=== PATIENT | female | born 1980 | race Hispanic/Latino ===

== ENCOUNTER 2017-12-24 18:59 | Emergency (ER) | payer SELFPAY ==
[2017-12-24] MEDS ORDERED: hydrOXYzine HCl 25 MG TAB ONE (19:36)
--- NOTE | 2017-12-24 19:43 | ER ---
Nurse's Notes [facility] Name: Liat Dover Age: 37 yrs Sex: Female : 1980 Arrival Date: 12/24/2017 Time: 19:02 Bed 10 Private MD: Diagnosis: Rash and other nonspecific skin eruption Presentation: 12/24 19:16 Presenting complaint: Patient states: that she has a rash to arms, neck, abd and groin fc area. This has been going on for months. She has been taking Benadryl with no relief. States that rash is getting worse. In August was seen her and was given Steroids that improved that rash. Unable to afford to go to dr. Transition of care: patient was not received from another setting of care. Onset of symptoms was August 2017. Initial Sepsis Screen: Does the patient meet any 2 criteria? No. Patient's initial sepsis screen is negative. Does the patient have a suspected source of infection? No. Patient's initial sepsis screen is negative. Care prior to arrival: Medication(s) given: Benadryl. 19:16 Method Of Arrival: Ambulatory 19:16 Acuity: ARYAN 5 Triage Assessment: 19:19 General: Appears uncomfortable, Behavior is cooperative, appropriate for age, anxious, fc crying. Pain: Denies pain. EENT: No deficits noted. Neuro: Level of Consciousness is awake, alert, obeys commands, Oriented to person, place, time, situation. Cardiovascular: No deficits noted. Respiratory: No deficits noted. GI: No deficits noted. : No deficits noted. Derm: Skin is pink, warm \T\ dry. Rash noted that is itchy, raised, urticaria, on back, abdomen, pelvis, right arm, left arm and neck. Musculoskeletal: Circulation, motion, and sensation intact. Capillary refill < 3 seconds, Range of motion: intact in all extremities. 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 - Social history:: Smoking status: Patient/guardian denies using tobacco. Screenin:20 Abuse screen: Denies threats or abuse. Nutritional screening: No deficits noted. Tuberculosis screening: No symptoms or risk factors identified. Fall Risk None identified. Assessment: 19:40 General: Appears in no apparent distress. uncomfortable, Behavior is cooperative, aa1 appropriate for age, anxious. Pain: Denies pain. Neuro: Level of Consciousness is awake, alert, obeys commands, Oriented to person, place, time, situation. Respiratory: Airway is patent Respiratory effort is even, unlabored, Respiratory pattern is regular, symmetrical, Breath sounds are clear bilaterally. GI: No signs and/or symptoms were reported involving the gastrointestinal system. : No signs and/or symptoms were reported regarding the genitourinary system. EENT: No signs and/or symptoms were reported regarding the EENT system. Derm: Skin is intact, is healthy with good turgor, Skin is pink, warm \T\ dry. Reports itching. Musculoskeletal: Circulation, motion, and sensation intact. Capillary refill < 3 seconds. 19:54 Reassessment: Patient appears in no apparent distress at this time. Patient is alert, aa1 oriented x 3, equal unlabored respirations, skin warm/dry/pink. Discussed d/c \T\ f/u instructions with pt; denies questions or concerns at this time. Vital Signs: 19:21 BP 108 / 81; Pulse 92; Resp 18; Temp 99.0(TE); Pulse Ox 100% on R/A; Weight 105.96 kg; fc Height 5 ft. 4 in. (162.56 cm); Pain 0/10; 19:21 Body Mass Index 40.10 (105.96 kg, 162.56 cm) ED Course: 19:02 Patient arrived in ED. mr 19:18 Jina Tam FNP-C [facility]. snw 19:18 Kody Ang MD is Attending Physician. snw 19:18 Triage completed. fc 19:20 Arm band placed on right wrist. Patient placed in an exam room, on a stretcher. fc 19:20 Patient has correct armband on for positive identification. Call light in reach. fc 19:34 Roxana Wade, RN is Primary Nurse. aa1 19:54 No provider procedures requiring assistance completed. Patient did not have IV access aa1 during this emergency room visit. Administered Medications: 19:40 Drug: Atarax 50 mg Route: PO; aa1 19:46 Follow up: Response: Medication administered at discharge. aa1 Outcome: 19:43 Discharge ordered by . kendra 19:54 Discharged to home ambulatory. aa1 19:54 Condition: good 19:54 Discharge instructions given to patient, Instructed on discharge instructions, follow up and referral plans. medication usage, Demonstrated understanding of instructions, follow-up care, medications, Prescriptions given X 2. 19:56 Patient left the ED. aa1 Signatures: Roxana Wade, RN RN aa1 Jina Tam, ENGINEERING AND SCIENTIFIC PROGRAMMER-C ENGINEERING AND SCIENTIFIC PROGRAMMER-Csnw Светлана Velasquez mr Hollie Goyal, [place] RN fc
--- NOTE | 2017-12-24 19:43 | EDPHYS ---
Physician Documentation [facility] Name: Liat Dover Age: 37 yrs Sex: Female : 1980 Arrival Date: 12/24/2017 Time: 19:02 Bed 10 Private MD: ED Physician Kody Ang HPI: 12/24 22:09 This 37 yrs old Female presents to ER via Ambulatory with complaints of Rash. snw 22:09 The patient's rash thought to be caused by Dermatitis. The rash is located on the body snw diffusely. The rash can be described as confluent, papular. Onset: The symptoms/episode began/occurred "since August and has gotten no better" pt states she has unscented everything and is scared to use any new products. Tearful and distraught at triage.. Severity of symptoms: At their worst the symptoms were moderate. Treatment given at home: Benadryl. The patient has not experienced similar symptoms in the past. x one, got better briefly but then recurred. 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 - Social history:: Smoking status: Patient/guardian denies using tobacco. ROS: 22:08 Constitutional: Negative for fever, chills, and weight loss, Eyes: Negative for injury, snw pain, redness, and discharge, ENT: Negative for injury, pain, and discharge, Neck: Negative for injury, pain, and swelling, Cardiovascular: Negative for chest pain, palpitations, and edema, Respiratory: Negative for shortness of breath, cough, wheezing, and pleuritic chest pain, Abdomen/GI: Negative for abdominal pain, nausea, vomiting, diarrhea, and constipation, Back: Negative for injury and pain, : Negative for injury, bleeding, discharge, and swelling, MS/Extremity: Negative for injury and deformity, Neuro: Negative for headache, weakness, numbness, tingling, and seizure, Psych: Negative for depression, anxiety, suicide ideation, homicidal ideation, and hallucinations. 22:08 Skin: Positive for rash with tiny dots that are intensely pruritic x several months.. Exam: 22:07 Constitutional: This is a well developed, well nourished patient who is awake, alert, snw and in no acute distress. Head/Face: Normocephalic, atraumatic. Eyes: Pupils equal round and reactive to light, extra-ocular motions intact. Lids and lashes normal. Conjunctiva and sclera are non-icteric and not injected. Cornea within normal limits. Periorbital areas with no swelling, redness, or edema. ENT: Nares patent. No nasal discharge, no septal abnormalities noted. Tympanic membranes are normal and external auditory canals are clear. Oropharynx with no redness, swelling, or masses, exudates, or evidence of obstruction, uvula midline. Mucous membranes moist. Neck: Trachea midline, no thyromegaly or masses palpated, and no cervical lymphadenopathy. Supple, full range of motion without nuchal rigidity, or vertebral point tenderness. No Meningismus. Chest/axilla: Normal chest wall appearance and motion. Nontender with no deformity. No lesions are appreciated. Cardiovascular: Regular rate and rhythm with a normal S1 and S2. No gallops, murmurs, or rubs. Normal PMI, no JVD. No pulse deficits. Respiratory: Lungs have equal breath sounds bilaterally, clear to auscultation and percussion. No rales, rhonchi or wheezes noted. No increased work of breathing, no retractions or nasal flaring. Abdomen/GI: Soft, non-tender, with normal bowel sounds. No distension or tympany. No guarding or rebound. No evidence of tenderness throughout. Back: No spinal tenderness. No costovertebral tenderness. Full range of motion. MS/ Extremity: Pulses equal, no cyanosis. Neurovascular intact. Full, normal range of motion. Neuro: Awake and alert, GCS 15, oriented to person, place, time, and situation. Cranial nerves II-XII grossly intact. Motor strength 5/5 in all extremities. Sensory grossly intact. Cerebellar exam normal. Normal gait. 22:07 Skin: Appearance: normal except for affected area, scabies, and is diffusely located. 22:07 Psych: Behavior/mood is pleasant, anxious. Vital Signs: 19:21 BP 108 / 81; Pulse 92; Resp 18; Temp 99.0(TE); Pulse Ox 100% on R/A; Weight 105.96 kg; fc Height 5 ft. 4 in. (162.56 cm); Pain 0/10; 19:21 Body Mass Index 40.10 (105.96 kg, 162.56 cm) fc MDM: 19:43 Patient medically screened. snw 22:08 Data reviewed: vital signs, nurses notes. Data interpreted: Pulse oximetry: on room air snw is 100 %. Interpretation: normal. Counseling: I had a detailed discussion with the patient and/or guardian regarding: the historical points, exam findings, and any diagnostic results supporting the discharge/admit diagnosis, the presence of at least one elevated blood pressure reading (>120/80) during this emergency department visit, the need for outpatient follow up, a xm1 tank driver, to return to the emergency department if symptoms worsen or persist or if there are any questions or concerns that arise at home. Special discussion: I have referred the patient to see his PCP for further evaluation of high blood pressure. Based on the history and exam findings, there is no indication for further emergent testing or inpatient evaluation. I discussed with the patient/guardian the need to see the xm1 tank driver for further evaluation of the symptoms. I discussed with the patient/guardian the need to see the primary care provider for further evaluation of the symptoms. Administered Medications: 19:40 Drug: Atarax 50 mg Route: PO; aa1 19:46 Follow up: Response: Medication administered at discharge. aa1 Disposition: 12/25 19:17 Co-signature as Attending Physician, Kody Ang MD. Disposition: 12/24/17 19:43 Discharged to Home. Impression: Rash and other nonspecific skin eruption. - Condition is Stable. - Discharge Instructions: Allergies, Rash, Scabies. - Prescriptions for Elimite 5 % Topical Cream - apply 1 application by TOPICAL route one time Wash after 12 hours.; 60 gram. Zyrtec 10 mg Oral Tablet - take 1 tablet by ORAL route once daily As needed; 20 tablet. - Medication Reconciliation Form, Thank You Letter, Antibiotic Education, Prescription Opioid Use form. - Follow up: Private Physician; When: 1 week; Reason: Recheck today's complaints, Continuance of care, Re-evaluation by your physician. Follow up: Emergency Department; When: As needed; Reason: Worsening of condition. Signatures: Roxana Wade RN RN aa1 Jina Tam, CRM TECHNICAL LEAD-C CRM TECHNICAL LEAD-Csnw Hollie Goyal RN RN fc Kody Ang MD MD gs Corrections: (The following items were deleted from the chart) 12/24 19:56 19:43 12/24/2017 19:43 Discharged to Home. Impression: Rash and other nonspecific skin aa1 eruption. Condition is Stable. Forms are Medication Reconciliation Form, Thank You Letter, Antibiotic Education, Prescription Opioid Use. Follow up: Private Physician; When: 1 week; Reason: Recheck today's complaints, Continuance of care, Re-evaluation by your physician. Follow up: Emergency Department; When: As needed; Reason: Worsening of condition. snw
== END 2017-12-24 19:56 | disposition home or self-care (01) ==
LOC: ER 18:59
DX: R21 Rash and other nonspecific skin eruption (principal)
CPT/HCPCS: 99283

== ENCOUNTER 2018-02-25 23:07 | Emergency (ER) | payer SELFPAY ==
[2018-02-25] MEDS ORDERED: LIDOCAINE 1% MPF 5 ML VIAL ONE (23:22)
[2018-02-25] MEDS ORDERED: TRAMADOL HCL 50 MG TAB ONE (23:37)
[2018-02-25] MEDS ORDERED: SMZ./TMP. 800/160 MG TABLET ONE (23:37)
[2018-02-25] MEDS ORDERED: CIPROFLOXACIN HCL 500 MG TAB ONE (23:37)
--- NOTE | 2018-02-25 23:43 | ER ---
Nurse's Notes [facility] Name: Liat Dover Age: 37 yrs Sex: Female : 1980 Arrival Date: 02/25/2018 Time: 23:07 Bed 15 Private MD: Diagnosis: Abscess right buttock Presentation: 02/25 23:15 Presenting complaint: Patient states: I have a boil on my left glute, started on the tl2 . Pt reports pain and unable to apply pressure. Abscess is hot to touch, draining, and baseball sized induration. Pt denies feeling sick. Transition of care: patient was not received from another setting of care. Onset of symptoms was February 19, 2018. Risk Assessment: Do you want to hurt yourself or someone else? Patient reports no desire to harm self or others. Initial Sepsis Screen: Does the patient meet any 2 criteria? No. Patient's initial sepsis screen is negative. Does the patient have a suspected source of infection? No. Patient's initial sepsis screen is negative. Care prior to arrival: None. 23:15 Method Of Arrival: Ambulatory tl2 23:15 Acuity: ARYAN 3 tl2 Triage Assessment: 23:19 General: Appears in no apparent distress. uncomfortable, Behavior is cooperative, tl2 appropriate for age, crying. Pain: Complains of pain in right gluteus luz maria. Neuro: Level of Consciousness is awake, alert, obeys commands, Oriented to person, place, time, situation. Cardiovascular: Denies chest pain. Respiratory: Airway is patent Respiratory effort is even, unlabored, Respiratory pattern is regular, symmetrical. GI: No signs and/or symptoms were reported involving the gastrointestinal system. : No signs and/or symptoms were reported regarding the genitourinary system. Derm: Skin is pink, warm \T\ dry. Abscess located on right gluteus luz maria is golf ball sized, has clear drainage, is hot to touch, is raised. 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 - Social history:: Smoking status: Patient/guardian denies using tobacco. - Ebola Screening: : No symptoms or risks identified at this time. Screenin:21 Abuse screen: Denies threats or abuse. Nutritional screening: No deficits noted. tl2 Tuberculosis screening: No symptoms or risk factors identified. Fall Risk None identified. Assessment: 23:43 Reassessment: Patient appears in no apparent distress at this time. Patient and/or tl1 family updated on plan of care and expected duration. Pain level reassessed. Patient is alert, oriented x 3, equal unlabored respirations, skin warm/dry/pink. Patient states feeling better. Patient states symptoms have improved. Vital Signs: 23:19 BP 131 / 92; Pulse 83; Resp 20; Temp 99.6(O); Pulse Ox 100% on R/A; Weight 108.86 kg; tl2 Height 5 ft. 4 in. (162.56 cm); Pain 10/10; 23:45 BP 138 / 96; Pulse 81; Resp 17; Temp 99.6; Pulse Ox 100% ; Pain 4/10; tl1 23:19 Body Mass Index 41.20 (108.86 kg, 162.56 cm) tl2 ED Course: 23:07 Patient arrived in ED. ds1 23:18 Triage completed. tl2 23:19 Ottoniel Toro MD is Attending Physician. pkl 23:19 Arm band placed on right wrist. tl2 23:21 Patient has correct armband on for positive identification. Placed in gown. Bed in low tl2 position. Call light in reach. Side rails up X 1. 23:40 Yessi Castro RN is Primary Nurse. tl1 23:40 Wound Culture Sent. tl1 23:41 Aquiles Thurman MD is Referral Physician. pkl 23:41 Assist provider with I \T\ D: of an abscess on left left glut area Set up I\T\D tray. tl 1 Performed by Ottoniel Toro MD Culture sent to lab. Wound packed. 4X4s, Dressing with ABD pad, tape. Patient did not have IV access during this emergency room visit. Administered Medications: 23:40 Drug: UltRAM 50 mg Route: PO; tl1 23:43 Follow up: Response: No adverse reaction; Medication administered at discharge. tl1 23:41 Drug: Bactrim (160 mg-800 mg (DS) 1 tablet Route: PO; tl1 23:44 Follow up: Response: No adverse reaction; Medication administered at discharge. tl1 23:41 Drug: Cipro 500 mg Route: PO; tl1 23:44 Follow up: Response: No adverse reaction; Medication administered at discharge. tl1 Point of Care Testing: Blood Glucose: 23:28 Blood Glucose: 87 mg/dL; cb2 Ranges: Outcome: 23:42 Discharge ordered by . pkl 23:50 Discharged to home ambulatory. tl1 23:50 Condition: improved 23:50 Discharge instructions given to patient, Instructed on discharge instructions, follow up and referral plans. medication usage, wound care, Demonstrated understanding of instructions, follow-up care, medications, wound care, Prescriptions given X 3. 23:52 Patient left the ED. tl1 Addendum: 03/01/2018 07:56 Addendum: Culture Results: Positive wound culture. No further action required. Bacteria i w sensitive to prescribed antibiotic. Signatures: Ottoniel Toro MD MD pkRaquel Mc ds1 Gail oDe RN RN iw Yessi Castro RN RN tl1 Suad Moe RN RN tl2 Marck Grider cb2
--- NOTE | 2018-02-25 23:43 | EDPHYS ---
Physician Documentation [facility] Name: Liat Dover Age: 37 yrs Sex: Female : 1980 Arrival Date: 02/25/2018 Time: 23:07 Bed 15 Private MD: ED Physician Ottoniel Toro HPI: 02/25 23:38 This 37 yrs old Female presents to ER via Ambulatory with complaints of Boil. pkl 23:38 The patient presents with an abscess of the right gluteus luz maria. Description: pkl fluctuant, tense. Onset: The symptoms/episode began/occurred 1 week(s) ago. 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 - Social history:: Smoking status: Patient/guardian denies using tobacco. - Ebola Screening: : No symptoms or risks identified at this time. ROS: 23:38 Eyes: Negative for injury, pain, redness, and discharge, ENT: Negative for injury, pkl pain, and discharge, Neck: Negative for injury, pain, and swelling, Cardiovascular: Negative for chest pain, palpitations, and edema, Respiratory: Negative for shortness of breath, cough, wheezing, and pleuritic chest pain, Abdomen/GI: Negative for abdominal pain, nausea, vomiting, diarrhea, and constipation, Back: Negative for injury and pain, : Negative for injury, bleeding, discharge, and swelling, MS/Extremity: Negative for injury and deformity. 23:38 Skin: Positive for abscess, of the right gluteus luz maria. 23:38 Neuro: Negative for altered mental status. Exam: 23:38 Head/Face: Normocephalic, atraumatic. Eyes: Pupils equal round and reactive to light, pkl extra-ocular motions intact. Lids and lashes normal. Conjunctiva and sclera are non-icteric and not injected. Cornea within normal limits. Periorbital areas with no swelling, redness, or edema. ENT: Nares patent. No nasal discharge, no septal abnormalities noted. Tympanic membranes are normal and external auditory canals are clear. Oropharynx with no redness, swelling, or masses, exudates, or evidence of obstruction, uvula midline. Mucous membranes moist. Neck: Trachea midline, no thyromegaly or masses palpated, and no cervical lymphadenopathy. Supple, full range of motion without nuchal rigidity, or vertebral point tenderness. No Meningismus. Chest/axilla: Normal chest wall appearance and motion. Nontender with no deformity. No lesions are appreciated. Cardiovascular: Regular rate and rhythm with a normal S1 and S2. No gallops, murmurs, or rubs. Normal PMI, no JVD. No pulse deficits. Respiratory: Lungs have equal breath sounds bilaterally, clear to auscultation and percussion. No rales, rhonchi or wheezes noted. No increased work of breathing, no retractions or nasal flaring. Abdomen/GI: Soft, non-tender, with normal bowel sounds. No distension or tympany. No guarding or rebound. No evidence of tenderness throughout. Back: No spinal tenderness. No costovertebral tenderness. Full range of motion. MS/ Extremity: Pulses equal, no cyanosis. Neurovascular intact. Full, normal range of motion. Neuro: Awake and alert, GCS 15, oriented to person, place, time, and situation. Cranial nerves II-XII grossly intact. Motor strength 5/5 in all extremities. Sensory grossly intact. Cerebellar exam normal. Normal gait. 23:38 Skin: abscess, that is large, approximately 5 cm(s), of the right gluteus luz maria, with fluctuance, that is moderate. Vital Signs: 23:19 BP 131 / 92; Pulse 83; Resp 20; Temp 99.6(O); Pulse Ox 100% on R/A; Weight 108.86 kg; tl2 Height 5 ft. 4 in. (162.56 cm); Pain 10/10; 23:45 BP 138 / 96; Pulse 81; Resp 17; Temp 99.6; Pulse Ox 100% ; Pain 4/10; tl1 23:19 Body Mass Index 41.20 (108.86 kg, 162.56 cm) tl2 Procedures: 23:38 I \T\ D: Incision and drainage was performed for an abscess of the right right gluteus pkl luz maria Anesthetized with 5 ml's 1% Lidocaine. Incised with #11 blade. Drained large amount purulent fluid. Packed with sterile gauze, Dressing: sterile 4x4 gauze, the patient tolerated the procedure well. MDM: 23:19 Patient medically screened. pk 23:38 Data reviewed: vital signs, nurses notes. [facility] 02/25 23:36 Order name: Wound Culture [facility] 02/25 23:37 Order name: Wound Culture EDMS Administered Medications: 23:40 Drug: UltRAM 50 mg Route: PO; tl1 23:43 Follow up: Response: No adverse reaction; Medication administered at discharge. tl1 23:41 Drug: Bactrim (160 mg-800 mg (DS) 1 tablet Route: PO; tl1 23:44 Follow up: Response: No adverse reaction; Medication administered at discharge. tl1 23:41 Drug: Cipro 500 mg Route: PO; tl1 23:44 Follow up: Response: No adverse reaction; Medication administered at discharge. tl1 Point of Care Testing: Blood Glucose: 23:28 Blood Glucose: 87 mg/dL; cb2 Ranges: Critical Glucose Levels:Adult <50 mg/dl or >400 mg/dl <40 mg/dl or >180 mg/dl Disposition: 02/25/18 23:42 Discharged to Home. Impression: Abscess right buttock. - Condition is Stable. - Prescriptions for Ultram 50 mg Oral Tablet - take 1 tablet by ORAL route every 8 hours As needed; 20 tablet. Cipro 500 mg Oral Tablet - take 1 tablet by ORAL route every 12 hours for 7 days; 14 tablet. Bactrim DS 800- 160 mg Oral Tablet - take 1 tablet by ORAL route every 12 hours for 10 days; 20 tablet. - Medication Reconciliation Form, Thank You Letter, Antibiotic Education, Prescription Opioid Use form. - Follow up: Aquiles Thurman MD; When: 2 - 3 days; Reason: Re-evaluation by your physician. - Problem is new. - Symptoms have improved. Signatures: Dispatcher [employer] EDMS Ottoniel Toro MD MD pkl Lasagna, Tonya RN RN tl1 Suad Moe RN RN tl2 Corrections: (The following items were deleted from the chart) 23:52 23:42 02/25/2018 23:42 Discharged to Home. Impression: Abscess right buttock. Condition tl1 is Stable. Forms are Medication Reconciliation Form, Thank You Letter, Antibiotic Education, Prescription Opioid Use. Follow up: Aquiles Thurman; When: 2 - 3 days; Reason: Re-evaluation by your physician. Problem is new. Symptoms have improved. pkl
== END 2018-02-25 23:52 | disposition home or self-care (01) ==
LOC: ER 23:07
PROC: 0H98XZZ Drainage of Buttock Skin, External Approach (ICD-10-PCS; principal; 2018-02-25)
DX: L02.32 Furuncle of buttock (principal)
CPT/HCPCS: 82962; 87070; 87077; 87186; 87205; 99284

== ENCOUNTER 2018-05-02 19:32 | Emergency (ER) | payer SELFPAY ==
[2018-05-02] MEDS ORDERED: LIDOCAINE 1% MPF 2 ML AMPULE ONE (20:11)
--- NOTE | 2018-05-02 20:30 | ER ---
Nurse's Notes [facility] Name: Liat Dover Age: 37 yrs Sex: Female : 1980 Arrival Date: 05/02/2018 Time: 19:44 Bed 13 Private MD: Diagnosis: Abscess left groin Presentation: 05/02 19:48 Presenting complaint: Patient states: She has an abscess on her groin for the past 5 aj1 days. Denies any drainage from the abscess. States she recently had a abscess in February that had to be drained. Transition of care: patient was not received from another setting of care. Onset of symptoms was April 26, 2018. Risk Assessment: Do you want to hurt yourself or someone else? Patient reports no desire to harm self or others. Initial Sepsis Screen: Does the patient meet any 2 criteria? No. Patient's initial sepsis screen is negative. Does the patient have a suspected source of infection? No. Patient's initial sepsis screen is negative. Care prior to arrival: None. 19:48 Method Of Arrival: Ambulatory aj 19:48 Acuity: ARYAN 4 aj1 Triage Assessment: 19:50 General: Appears uncomfortable, Behavior is anxious, crying. Pain: Complains of pain in aj1 left femoral area Pain currently is 6 out of 10 on a pain scale. Neuro: Level of Consciousness is awake, alert, obeys commands. Cardiovascular: Patient's skin is warm and dry. Respiratory: Airway is patent Respiratory effort is even, unlabored, Respiratory pattern is regular, symmetrical. 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 - Social history:: Smoking status: Patient/guardian denies using tobacco. - Ebola Screening: : Patient denies travel to an Ebola-affected area in the 21 days before illness onset. Screenin:00 Abuse screen: Denies threats or abuse. Denies injuries from another. ao 20:00 Nutritional screening: No deficits noted. Tuberculosis screening: No symptoms or risk ao factors identified. Fall Risk None identified. Assessment: 20:00 General: Appears in no apparent distress. uncomfortable, Behavior is cooperative, ao crying. Pain: Complains of pain in left femoral area. Neuro: Level of Consciousness is awake, alert, obeys commands, Oriented to person, place, time, situation, Appropriate for age Moves all extremities. Full function Speech is normal, Facial symmetry appears normal. Cardiovascular: Capillary refill < 3 seconds Patient's skin is warm and dry. Respiratory: Airway is patent Respiratory effort is even, unlabored, Respiratory pattern is regular, symmetrical. GI: Abdomen is obese. : on perineum Abscess noticed next to the left labia majora genital area. EENT: No signs and/or symptoms were reported regarding the EENT system. Derm: Abscess located on left femoral area is quarter sized. Musculoskeletal: Circulation, motion, and sensation intact. Range of motion: intact in all extremities. 20:54 Reassessment: Patient appears in no apparent distress at this time. Provided with a ao work note to give time for patient to follow up with DR Thurman. Patient agree with the POC and agree to follow up with Dr Thurman and a PCP. Provided with a list of [facility] for patient to follow up. Vital Signs: 19:50 BP 124 / 79; Pulse 78; Resp 18; Temp 97.8(TE); Pulse Ox 100% on R/A; Weight 107.95 kg aj1 (R); Height 5 ft. 4 in. (162.56 cm) (R); Pain 6/10; 19:50 Body Mass Index 40.85 (107.95 kg, 162.56 cm) aj1 ED Course: 19:44 Patient arrived in ED. al2 19:49 Triage completed. aj1 19:50 Arm band placed on Patient placed in an exam room. aj1 19:53 Ottoniel Toro MD is Attending Physician. pkl 19:56 Adams Sanchez, [place] is Primary Nurse. ao 20:29 Aquiles Thurman MD is Referral Physician. pkl 20:42 Assist provider with I \T\ D: of an abscess on left perineal Set up I\T\D tray. Performed ao by Ottoniel Toro MD Culture sent to lab. Wound packed. iodoform gauze, Dressing with 4X4s, tape Patient tolerated poorly. Patient did not have IV access during this emergency room visit. 20:43 Patient has correct armband on for positive identification. Pulse ox on. NIBP on. ao Administered Medications: 20:35 Drug: [place] (7.5 mg-325 mg) 1 tabs Route: PO; ao 05/03 03:36 Follow up: Response: No adverse reaction ao 05/02 20:35 Drug: Bactrim (160 mg-800 mg (DS) 1 tablet Route: PO; ao 05/03 03:36 Follow up: Response: No adverse reaction ao Point of Care Testing: Blood Glucose: 05/02 20:37 Blood Glucose: 91 mg/dL; lp1 Ranges: Outcome: 20:29 Discharge ordered by . renetta 20:43 Discharged to home ambulatory. ao 20:43 Condition: stable 20:43 Discharge instructions given to patient, Instructed on discharge instructions, follow up and referral plans. Demonstrated understanding of instructions, follow-up care, medications, Prescriptions given X 2. 20:56 Patient left the ED. ao Signatures: Ryann Leonard RN RN aj1 Ottoniel Toro MD MD pkl Pena, Laura, RN RN lp1 Adams Sanchez RN RN ao Love, Angelica al2
--- NOTE | 2018-05-02 20:30 | EDPHYS ---
Physician Documentation [facility] Name: Liat Dover Age: 37 yrs Sex: Female : 1980 Arrival Date: 05/02/2018 Time: 19:44 Bed 13 Private MD: ED Physician Ottoniel Toro HPI: 05/02 20:04 This 37 yrs old Female presents to ER via Ambulatory with complaints of Boil. pkl 20:04 The patient presents with an abscess of the left groin. Description: fluctuant, pkl swollen. Onset: The symptoms/episode began/occurred 1 week(s) ago. 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 - Social history:: Smoking status: Patient/guardian denies using tobacco. - Ebola Screening: : Patient denies travel to an Ebola-affected area in the 21 days before illness onset. ROS: 20:04 Eyes: Negative for injury, pain, redness, and discharge, ENT: Negative for injury, pkl pain, and discharge, Neck: Negative for injury, pain, and swelling, Cardiovascular: Negative for chest pain, palpitations, and edema, Respiratory: Negative for shortness of breath, cough, wheezing, and pleuritic chest pain. 20:04 Abdomen/GI: Positive for abdominal pain, of the left groin. 20:04 Back: Negative for acute changes. 20:04 : Negative for urinary symptoms. 20:04 MS/extremity: Negative for acute changes. 20:04 Skin: Positive for abscess, of the left groin. 20:04 Neuro: Negative for altered mental status. Exam: 20:04 Head/Face: Normocephalic, atraumatic. Eyes: Pupils equal round and reactive to light, pkl extra-ocular motions intact. Lids and lashes normal. Conjunctiva and sclera are non-icteric and not injected. Cornea within normal limits. Periorbital areas with no swelling, redness, or edema. ENT: Nares patent. No nasal discharge, no septal abnormalities noted. Tympanic membranes are normal and external auditory canals are clear. Oropharynx with no redness, swelling, or masses, exudates, or evidence of obstruction, uvula midline. Mucous membranes moist. Neck: Trachea midline, no thyromegaly or masses palpated, and no cervical lymphadenopathy. Supple, full range of motion without nuchal rigidity, or vertebral point tenderness. No Meningismus. Chest/axilla: Normal chest wall appearance and motion. Nontender with no deformity. No lesions are appreciated. Cardiovascular: Regular rate and rhythm with a normal S1 and S2. No gallops, murmurs, or rubs. Normal PMI, no JVD. No pulse deficits. Respiratory: Lungs have equal breath sounds bilaterally, clear to auscultation and percussion. No rales, rhonchi or wheezes noted. No increased work of breathing, no retractions or nasal flaring. 20:04 Abdomen/GI: Inspection: abscess left groin. 20:04 Back: Exam negative for acute changes. 20:04 : Exam negative for acute changes. 20:04 Musculoskeletal/extremity: Exam is negative for acute changes. 20:04 Skin: abscess, that is moderate sized, approximately 4 cm(s), of the left groin, with fluctuance, that is moderate. 20:04 Neuro: Exam negative for acute changes. Vital Signs: 19:50 BP 124 / 79; Pulse 78; Resp 18; Temp 97.8(TE); Pulse Ox 100% on R/A; Weight 107.95 kg aj1 (R); Height 5 ft. 4 in. (162.56 cm) (R); Pain 6/10; 19:50 Body Mass Index 40.85 (107.95 kg, 162.56 cm) aj1 Procedures: 20:27 I \T\ D: Incision and drainage was performed for an abscess of the left groin Prepped [facility] with Betadine, Anesthetized with 5 ml's 1% Lidocaine. Incised with #11 blade. Drained large amount purulent fluid. Packed with iodoform gauze, Dressing: sterile 4x4 gauze, the patient tolerated the procedure well. MDM: 19:53 Patient medically screened. [facility] 20:27 Data reviewed: vital signs, nurses notes. [facility] 05/02 20:27 Order name: Wound Culture [facility] 05/02 20:27 Order name: Accucheck; Complete Time: 20:37 pkl Administered Medications: 20:35 Drug: [place] (7.5 mg-325 mg) 1 tabs Route: PO; ao 05/03 03:36 Follow up: Response: No adverse reaction ao 05/02 20:35 Drug: Bactrim (160 mg-800 mg (DS) 1 tablet Route: PO; ao 05/03 03:36 Follow up: Response: No adverse reaction ao Point of Care Testing: Blood Glucose: 05/02 20:37 Blood Glucose: 91 mg/dL; lp1 Ranges: Critical Glucose Levels:Adult <50 mg/dl or >400 mg/dl <40 mg/dl or >180 mg/dl Disposition: 05/02/18 20:29 Discharged to Home. Impression: Abscess left groin. - Condition is Stable. - Prescriptions for Ultram 50 mg Oral Tablet - take 1 tablet by ORAL route every 8 hours As needed; 20 tablet. Bactrim DS 800- 160 mg Oral Tablet - take 1 tablet by ORAL route every 12 hours for 10 days; 20 tablet. - Medication Reconciliation Form, Thank You Letter, Antibiotic Education, Prescription Opioid Use, Work release form form. - Follow up: Aquiles Thurman MD; When: 2 - 3 days; Reason: Re-evaluation by your physician. - Problem is new. - Symptoms have improved. Signatures: Dispatcher [employer] EDRyann Broussard RN RN aj1 Ottoniel Toro MD MD pkl Adams Sanchez RN RN ao Corrections: (The following items were deleted from the chart) 20:56 20:29 05/02/2018 20:29 Discharged to Home. Impression: Abscess left groin. Condition is ao Stable. Forms are Medication Reconciliation Form, Thank You Letter, Antibiotic Education, Prescription Opioid Use. Follow up: Aquiles Thurman; When: 2 - 3 days; Reason: Re-evaluation by your physician. Problem is new. Symptoms have improved. pkl
[2018-05-02] MEDS ORDERED: HYDROCODONE/APAP 7.5/325 MG TAB ONE (20:39)
[2018-05-02] MEDS ORDERED: SMZ./TMP. 800/160 MG TABLET ONE (20:39)
[2018-05-02] MEDS ORDERED: MORPHINE 4 MG/ML SYR ONE (21:48)
== END 2018-05-02 20:56 | disposition home or self-care (01) ==
LOC: ER 19:32
PROC: 0H9AXZZ Drainage of Inguinal Skin, External Approach (ICD-10-PCS; principal; 2018-05-02)
DX: L02.214 Cutaneous abscess of groin (principal)
CPT/HCPCS: 82962; 87070; 87077; 87186; 87205; 99284; J2001

== ENCOUNTER 2019-06-08 10:13 | Emergency (ER) | payer SELFPAY ==
[2019-06-08] MEDS ORDERED: BUPIVACAINE 0.5% PF 10 ML VIAL ONE (11:17)
[2019-06-08] MEDS ORDERED: LIDOCAINE 1% W/EPI 1:100,000 MDV 20 ML VIAL ONE (11:17)
--- NOTE | 2019-06-08 12:01 | ER ---
Nurse's Notes [facility] Name: Liat Dover Age: 39 yrs Sex: Female : 1980 Arrival Date: 06/08/2019 Time: 10:17 Bed 9 Private MD: Diagnosis: Cellulitis of abdominal wall Presentation: 06/08 10:23 Presenting complaint: Patient states: "I think I have a staff infection" Patient aj1 reports abscess to left lower abdomen. Denies fever. Denies drainage. Transition of care: patient was not received from another setting of care. Onset of symptoms was May 2019. Risk Assessment: Do you want to hurt yourself or someone else? Patient reports no desire to harm self or others. Initial Sepsis Screen: Does the patient meet any 2 criteria? No. Patient's initial sepsis screen is negative. Does the patient have a suspected source of infection? Yes: Skin breakdown/wound. Care prior to arrival: None. 10:23 Method Of Arrival: Ambulatory aj1 10:23 Acuity: ARYAN 4 aj1 Triage Assessment: 10:25 General: Appears in no apparent distress. uncomfortable, Behavior is cooperative, aj1 anxious, crying. Pain: Complains of pain in left lower quadrant Pain currently is 8 out of 10 on a pain scale. EENT: No signs and/or symptoms were reported regarding the EENT system. Neuro: Level of Consciousness is awake, alert, obeys commands. Cardiovascular: Patient's skin is warm and dry. Respiratory: Airway is patent Respiratory effort is even, unlabored, Respiratory pattern is regular, symmetrical. GI: No signs and/or symptoms were reported involving the gastrointestinal system. : No signs and/or symptoms were reported regarding the genitourinary system. Derm: Abscess located on left lower quadrant. Musculoskeletal: No signs and/or symptoms reported regarding the musculoskeletal system. Circulation, motion, and sensation intact. 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 - Social history:: Smoking status: Patient/guardian denies using tobacco. - Ebola Screening: : Patient denies travel to an Ebola-affected area in the 21 days before illness onset. Screenin:00 Abuse screen: Denies threats or abuse. Denies injuries from another. Nutritional iw screening: No deficits noted. Tuberculosis screening: No symptoms or risk factors identified. Fall Risk None identified. Assessment: 11:30 General: Appears in no apparent distress. Behavior is calm, cooperative. Pain: iw Complains of pain in left lower quadrant. Neuro: Level of Consciousness is awake, alert, obeys commands, Oriented to person, place, time, situation. Cardiovascular: Patient's skin is warm and dry. Respiratory: Respiratory effort is even, unlabored. Derm: Abscess located on left lower quadrant is quarter sized, has purulent drainage. Musculoskeletal: Range of motion: intact in all extremities. Vital Signs: 10:25 BP 149 / 104; Pulse 78; Resp 18; Temp 97.6; Pulse Ox 100% on R/A; Weight 107.05 kg (R); aj1 Height 5 ft. 3 in. (160.02 cm) (R); Pain 8/10; 10:25 Body Mass Index 41.81 (107.05 kg, 160.02 cm) aj1 ED Course: 10:17 Patient arrived in ED. mr 10:22 Zane Bae PA is PHCP. cp 10:22 Neftali Alvarez MD is Attending Physician. cp 10:24 Triage completed. aj1 10:25 Arm band placed on Patient placed in an exam room. aj1 11:16 Gail Doe, RN is Primary Nurse. iw 11:30 Patient has correct armband on for positive identification. iw 12:05 Assist provider with I \\T\\ D: of an abscess on left lower quadrant Set up I\\T\\D tray. iw Performed by Zane RESTREPO Dressing with Neosporin and 4X4s, tape Patient tolerated well. Patient did not have IV access during this emergency room visit. Administered Medications: 12:34 Drug: Bactrim (160 mg-800 mg (DS) 1 tablet Route: PO; iw 12:34 Drug: Doxycycline 100 mg Route: PO; iw Outcome: 12:00 Discharge ordered by . cp 12:35 Discharged to home ambulatory, with family. iw 12:35 Condition: good 12:35 Discharge instructions given to patient, Instructed on discharge instructions, follow up and referral plans. medication usage, wound care, Demonstrated understanding of instructions, follow-up care, medications, wound care, Prescriptions given X 2. 12:36 Patient left the ED. iw Signatures: Ryann Leonard RN RN aj1 Noelle Velasquez Irene, RN RN iw Zane Bae PA PA cp
--- NOTE | 2019-06-08 12:01 | EDPHYS ---
Physician Documentation [facility] Name: Liat Dover Age: 39 yrs Sex: Female : 1980 Arrival Date: 06/08/2019 Time: 10:17 Bed 9 Private MD: ED Physician Neftali Alvarez HPI: 06/08 11:20 This 39 yrs old Female presents to ER via Ambulatory with complaints of cp Abscess. 11:20 the patient presents with a swollen area of the left lower quadrant of abdomen. cp Description: erythematous, raised, swollen, warm. Onset: The symptoms/episode began/occurred yesterday. Associated signs and symptoms: Pertinent positives: erythema, Pertinent negatives: discharge, drainage, fever, headache, vomiting. Severity of symptoms: in the emergency department the symptoms are unchanged, despite home interventions. 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 - Social history:: Smoking status: Patient/guardian denies using tobacco. - Ebola Screening: : Patient denies travel to an Ebola-affected area in the 21 days before illness onset. ROS: 11:30 Constitutional: Negative for body aches, chills, fever, poor PO intake. cp 11:30 Eyes: Negative for injury, pain, redness, and discharge. cp 11:30 ENT: Negative for drainage from ear(s), ear pain, sore throat, difficulty swallowing, difficulty handling secretions. 11:30 Cardiovascular: Negative for chest pain, palpitations. 11:30 Respiratory: Negative for cough, shortness of breath, wheezing. 11:30 Abdomen/GI: Positive for abdominal pain. 11:30 Skin: Positive for abscess, cellulitis, of the abdomen. 11:30 Neuro: Negative for altered mental status, headache, weakness. 11:30 All other systems are negative. Exam: 11:35 Constitutional: The patient appears in no acute distress, alert, awake, non-toxic, well cp developed, well nourished. 11:35 Head/Face: Normocephalic, atraumatic. cp 11:35 Eyes: Periorbital structures: appear normal, Conjunctiva: normal, no exudate, no injection, Sclera: no appreciated abnormality, Lids and lashes: appear normal, bilaterally. 11:35 ENT: External ear(s): are unremarkable, Nose: is normal, Mouth: Lips: moist, Oral mucosa: pink and intact, moist, Posterior pharynx: is normal, airway is patent, no erythema, no exudate. 11:35 Chest/axilla: Inspection: normal, Palpation: is normal, no crepitus, no tenderness. 11:35 Cardiovascular: Rate: normal, Rhythm: regular. 11:35 Respiratory: the patient does not display signs of respiratory distress, Respirations: normal, no use of accessory muscles, no retractions, no splinting, no tachypnea, labored breathing, is not present, Breath sounds: are clear throughout, no decreased breath sounds, no stridor, no wheezing. 11:35 Abdomen/GI: Bowel sounds: active, all quadrants, Palpation: soft, in all quadrants, moderate abdominal tenderness, in the left lower quadrant, rebound tenderness, is not appreciated, voluntary guarding, is elicited in the left lower quadrant. 11:35 Skin: cellulitis, that is moderate, irregular, on the left lower quadrant of abdomen. Vital Signs: 10:25 BP 149 / 104; Pulse 78; Resp 18; Temp 97.6; Pulse Ox 100% on R/A; Weight 107.05 kg (R); aj1 Height 5 ft. 3 in. (160.02 cm) (R); Pain 8/10; 10:25 Body Mass Index 41.81 (107.05 kg, 160.02 cm) aj1 MDM: 10:27 Patient medically screened. cp 11:45 Differential diagnosis: abscess, cellulitis, insect bite. cp 12:00 Data reviewed: vital signs, nurses notes, and as a result, I will discharge patient. cp 12:00 Counseling: I had a detailed discussion with the patient and/or guardian regarding: the cp historical points, exam findings, and any diagnostic results supporting the discharge/admit diagnosis, the presence of at least one elevated blood pressure reading (>120/80) during this emergency department visit, the need for outpatient follow up, a family practitioner, to return to the emergency department if symptoms worsen or persist or if there are any questions or concerns that arise at home. Response to treatment: the patient's symptoms have mildly improved after treatment, and as a result, I will discharge patient. 06/08 11:14 Order name: I\T\D Setup; Complete Time: 11:19 cp 06/08 11:14 Order name: Urine Dipstick-Ancillary (obtain specimen); Complete Time: 11:32 cp 06/08 11:14 Order name: Urine Test (obtain specimen); Complete Time: 11:32 cp 06/08 11:58 [place] [facility] [place]: outline area of redness and dress with guaze; Complete Time: cp 12:34 Administered Medications: 12:34 Drug: Bactrim (160 mg-800 mg (DS) 1 tablet Route: PO; iw 12:34 Drug: Doxycycline 100 mg Route: PO; iw Disposition: 13:07 Co-signature as Attending Physician, Neftali Alvarez MD I agree with the assessment and kdr plan of care. Disposition: 06/08/19 12:00 Discharged to Home. Impression: Cellulitis of abdominal wall. - Condition is Stable. - Discharge Instructions: Cellulitis, Adult. - Prescriptions for Doxycycline Hyclate 100 mg Oral Tablet - take 1 tablet by ORAL route every 12 hours; 20 tablet. Bactrim DS 800- 160 mg Oral Tablet - take 1 tablet by ORAL route every 12 hours for 10 days; 20 tablet. - Work release form, Medication Reconciliation Form, Thank You Letter, Antibiotic Education, Prescription Opioid Use form. - Follow up: Private Physician; When: 48 Hours; Reason: Recheck today's complaints. - Problem is new. - Symptoms have improved. Signatures: Ryann Leonard RN RN aj1 Neftali Alvarez MD MD kdr Gail Doe RN RN iw Zane Bae PA PA cp Corrections: (The following items were deleted from the chart) 12:36 12:00 06/08/2019 12:00 Discharged to Home. Impression: Cellulitis of abdominal wall. iw Condition is Stable. Forms are Medication Reconciliation Form, Thank You Letter, Antibiotic Education, Prescription Opioid Use. Follow up: Private Physician; When: 48 Hours; Reason: Recheck today's complaints. Problem is new. Symptoms have improved. cp
[2019-06-08] MEDS ORDERED: DOXYCYCLINE 100 MG CAP PO ONE (12:16)
[2019-06-08] MEDS ORDERED: SMZ./TMP. 800/160 MG TABLET ONE (12:16)
[2019-06-08 12:49] VITALS: BP 149/104; TEMP 97.6; O2SAT 100
== END 2019-06-08 12:36 | disposition home or self-care (01) ==
LOC: ER 10:13
DX: L03.311 Cellulitis of abdominal wall (principal)
CPT/HCPCS: 99283

== ENCOUNTER 2019-11-18 12:51 | Emergency (ER) | payer SELFPAY ==
--- OUTSIDE RECORDS SUMMARY | 2019-11-18 12:53 | XMS REPORT | Summary of Care ---
:1980 Author Organization [facility] - Health Address [address] [place] [id number] Care Team Providers Name Role Phone Roslyn Bagley TC OPERATOR Primary Care Provider Encounter Details Date Type Department Care Team Description 07/12/2019 Orders Only [facility] Doctor Unassigned, No 301 [facility] Name [place] [id number] [address] [place] [id number] Allergies No Known Allergiesdocumented as of this encounter (statuses as of 09/16/2019) Medications Medication Sig Dispensed Refills Start Date End Date Status terconazole 0.8 % Insert 1 Applicator 20 g 0 11/04/2018 Active vaginal into vagina at creamIndications: bedtime. Krissy infection of genital region documented as of this encounter (statuses as of 09/16/2019) Active Problems Problem Noted Date Recurrent boils 11/04/2018 BMI 40.0-44.9, adult 04/22/2018 History of tubal ligation 05/15/2015 Morbid obesity 05/15/2015 History of anxiety 05/15/2015 documented as of this encounter (statuses as of 09/16/2019) Resolved Problems Problem Noted Date Resolved Date Encounter for surveillance of contraceptives, unspecified 04/22/20182017 contraceptive Well woman exam 04/22/2018 07/06/2018 Screening for STDs (sexually transmitted diseases) 04/22/2018 07/06/2018 Encounter for routine gynecological examination 05/15/2015 03/24/2018 Overview: ICD10 Diagnosis Term 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 Screening for STD (sexually transmitted disease) 05/15/2015 03/24/2018 Need for Tdap vaccination 05/15/2015 03/24/2018 General counseling and advice for contraceptive management 05/15/20152017 Overview: ICD10 Diagnosis Term 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 Irregular menstrual cycle 05/15/2015 03/24/2018 documented as of this encounter (statuses as of 09/16/2019) Immunizations Name Administration Dates Next Due Td 08/24/1995 Tdap 05/15/2015 documented as of this encounter Social History Tobacco Use Types Packs/Day Years Used Date Current Some Day Smoker Cigarettes Smokeless Tobacco: Never Used Comments: stopped smoking 12 yrs ago Alcohol Use Drinks/Week oz/Week Comments Yes 0 Standard drinks or equivalent 0.0 socially Sex Assigned at Date Recorded Not on file Job Start Date Occupation Industry Not on file Not on file Not on file Travel History Travel Start Travel End No recent travel history available. documented as of this encounter Last Filed Vital Signs Not on filedocumented in this encounter Plan of Treatment Health Maintenance Due Date Last Done Comments VARICELLA VACCINES (1 of 2 - 1983 2-dose childhood series) PAP SMEAR 05/15/2018 05/15/2015 INFLUENZA VACCINE (#1) 2019 DTaP,Tdap,and Td Vaccines (3 05/15/2025 05/15/2015, - Td) 08/24/1995 PNEUMOCOCCAL 0-64 YEARS Aged Out No longer eligible based COMBINED SERIES on patient's age to complete this topic documented as of this encounter Procedures Procedure Name Priority Date/Time Associated Diagnosis Comments AUTHORIZATION FOR RELEASE Routine 07/12/2019 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
--- OUTSIDE RECORDS SUMMARY | 2019-11-18 12:53 | XMS REPORT ---
:1980 Author Organization [facility] Address [address] Maya [address] [place] [id number] Care Team Providers Name Role Phone Unavailable Unavailable Unavailable Problems This patient has no known problems. Allergies, Adverse Reactions, Alerts This patient has no known allergies or adverse reactions. Medications This patient has no known medications.
--- NOTE | 2019-11-18 14:21 | RAD REPORT ---
EXAM DESCRIPTION: RAD - Ankle Right 3 View - 11/18/2019 2:14 pm CLINICAL HISTORY: Right ankle pain FINDINGS: No fracture or dislocation is seen. A 1 centimeter linear radiopaque density is present within the foot at the level of the metatarsal ne ck which may represent a needle. It is incompletely evaluated on this exam
--- NOTE | 2019-11-18 14:41 | RAD REPORT ---
EXAM DESCRIPTION: RAD - Knee Left 3 View - 11/18/2019 2:14 pm CLINICAL HISTORY: Left knee pain status post injury FINDINGS: Anterior soft tissue swelling inferior knee. Two bony densities lie anterior to tibial tubercle. Given the adjacent soft tissue swelling these pro bably represent acute avulsed bone fragments. No dislocation
[2019-11-18] MEDS ORDERED: HYDROCODONE/APAP 10/325 TAB ONE (14:47)
--- NOTE | 2019-11-18 15:06 | ER ---
Nurse's Notes [facility] Name: Liat Dover Age: 39 yrs Sex: Female : 1980 Arrival Date: 11/18/2019 Time: 12:55 Bed 16 Private MD: Diagnosis: Fracture of tibial tuberosity-left;Sprain of ankle-right Presentation: 11/17 12:57 Chief complaint: Patient states: tripped and fall 4 days ago, rolled right ankle and iw landed on her left knee, has had pain, bruising to left knee since then, can't go back to work without clearance. Coronavirus screen: Patient denies fever greater than 100.4F, cough, shortness of breath, or difficulty breathing. Proceed with normal triage process. Ebola Screen: Patient negative for fever greater than or equal to 101.5 degrees Fahrenheit, and additional compatible Ebola Virus Disease symptoms Patient denies exposure to infectious person. Patient denies travel to an Ebola-affected area in the 21 days before illness onset. No symptoms or risks identified at this time. Initial Sepsis Screen: Does the patient meet any 2 criteria? No. Patient's initial sepsis screen is negative. Does the patient have a suspected source of infection? No. Patient's initial sepsis screen is negative. Risk Assessment: Do you want to hurt yourself or someone else? Patient reports no desire to harm self or others. 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 - Social history:: Smoking status: Patient denies any tobacco usage or history of. Screenin:12 Abuse screen: Denies threats or abuse. Denies injuries from another. Nutritional ph screening: No deficits noted. Tuberculosis screening: No symptoms or risk factors identified. Fall Risk None identified. Assessment: 13:10 General: Appears in no apparent distress. comfortable, well groomed, Behavior is calm, ph cooperative, appropriate for age. Pain: Complains of pain in left knee and right ankle. Neuro: Level of Consciousness is awake, alert, obeys commands, Oriented to person, place, time, situation. Cardiovascular: Capillary refill < 3 seconds in bilateral fingers toes Patient's skin is warm and dry. Respiratory: Airway is patent Respiratory effort is even, unlabored, Respiratory pattern is regular, symmetrical. Derm: Skin is intact, is healthy with good turgor, Skin is pink, warm \T\ dry. Bruising that is dark purple, on left knee. Musculoskeletal: Circulation, motion, and sensation intact. Swelling present in left knee. 14:30 Reassessment: Patient appears in no apparent distress at this time. Patient and/or ph family updated on plan of care and expected duration. Pain level reassessed. Patient is alert, oriented x 3, equal unlabored respirations, skin warm/dry/pink. 15:40 Reassessment: Patient appears in no apparent distress at this time. Patient and/or ph family updated on plan of care and expected duration. Pain level reassessed. Patient is alert, oriented x 3, equal unlabored respirations, skin warm/dry/pink. D/C papers signed by pt, awaiting ride home from family, pt allowed to wait in room. Vital Signs: 12:57 BP 120 / 70; Pulse 74; Resp 16; Temp 97.4; Pulse Ox 100% on R/A; Weight 103.42 kg; iw Height 5 ft. 3 in. (160.02 cm); Pain 6/10; 15:30 BP 117 / 76; Pulse 72; Resp 18; Temp 98.0; Pulse Ox 99% on R/A; ph 12:57 Body Mass Index 40.39 (103.42 kg, 160.02 cm) iw ED Course: 12:55 Patient arrived in ED. am2 12:59 Triage completed. iw 12:59 Arm band placed on. iw 13:01 Zane Bae PA is PHCP. cp 13:01 Neftali Alvarez MD is Attending Physician. cp 13:10 Rhianna Gomes, [place] is Primary Nurse. ph 13:13 Patient has correct armband on for positive identification. Bed in low position. Call ph light in reach. Side rails up X 1. Pulse ox on. NIBP on. Door closed. Noise minimized. Warm blanket given. 13:13 No provider procedures requiring assistance completed. Patient did not have IV access ph during this emergency room visit. 14:15 XRAY Ankle RIGHT 3 view In Process Unspecified. EDMS 14:15 XRAY Knee LEFT 3 view In Process Unspecified. EDMS 15:02 Low Roca MD is Referral Physician. cp 15:50 Crutch training done. Shane wrap to right ankle Air stirrup applied to right ankle. Knee ph immobilizer applied on left knee. Administered Medications: 14:45 Drug: HYDROcodone-acetaminophen 10 mg-325 mg 1 tabs Route: PO; ae4 16:54 Follow up: Response: No adverse reaction; Pain is decreased ph Outcome: 15:05 Discharge ordered by MD. cp 16:16 Discharged to home ambulatory, with crutches, with family. ph 16:16 Condition: good 16:16 Discharge instructions given to patient, Instructed on discharge instructions, follow up and referral plans. medication usage, crutch walking, Demonstrated understanding of instructions, follow-up care, medications. 16:21 Patient left the ED. ss Signatures: Dispatcher [employer] EDIN Gail Doe RN RN Risa Gonzalez RN RN Rhianna Gomes RN RN Zane Hassan, PA PA cp Thelma Nunes Andrea RN RN ae4
--- NOTE | 2019-11-18 15:06 | EDPHYS ---
Physician Documentation [facility] Name: Liat Dover Age: 39 yrs Sex: Female : 1980 Arrival Date: 11/18/2019 Time: 12:55 Bed 16 Private MD: ED Physician Neftali Alvarez HPI: 11/17 13:45 This 39 yrs old Female presents to ER via Ambulatory with complaints of Knee cp Injury, Fall Injury. 13:45 The patient presents with an injury, pain, that is acute, swelling, tenderness. The cp complaints affect the left knee. 13:45 Context: resulted from the patient falling, while standing, twisting of the extremity, cp during a fall, the patient can partially bear weight, the patient is able to ambulate, with moderate difficulty, Problem is a result from a previous injury: No. Onset: The symptoms/episode began/occurred 4 day(s) ago. Associated signs and symptoms: Pertinent positives: right ankle pain, Pertinent negatives numbness. 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 - Social history:: Smoking status: Patient denies any tobacco usage or history of. ROS: 14:00 Constitutional: Negative for body aches, chills, fever. cp 14:00 Eyes: Negative for injury, pain, redness, and discharge. cp 14:00 ENT: Negative for drainage from ear(s), ear pain, sore throat, difficulty swallowing, difficulty handling secretions. 14:00 Cardiovascular: Negative for chest pain, palpitations. 14:00 Respiratory: Negative for cough, shortness of breath, wheezing. 14:00 Abdomen/GI: Negative for abdominal pain, nausea, vomiting, and diarrhea. 14:00 Back: Negative for pain at rest, pain with movement. 14:00 MS/extremity: Positive for ecchymosis, pain, tenderness, of the right ankle and left knee. 14:00 Skin: Positive for ecchymosis, of the left knee. 14:00 All other systems are negative. Exam: 14:05 Constitutional: The patient appears in no acute distress, alert, awake, non-toxic, well cp developed, well nourished. 14:05 Head/Face: Normocephalic, atraumatic. cp 14:05 Cardiovascular: Rate: normal, Rhythm: regular. 14:05 Respiratory: the patient does not display signs of respiratory distress, Respirations: normal, no use of accessory muscles, no retractions, labored breathing, is not present. 14:05 Musculoskeletal/extremity: Extremities: grossly normal except: noted in the anterior aspect of left proximal tibia: ecchymosis, pain, swelling, tenderness, There is no evidence of decreased ROM, noted in the right ankle: tenderness, no evidence of decreased ROM, deformity. 14:05 Skin: cellulitis, is not appreciated. 14:05 Neuro: Orientation: to person, place \T\ time. Mentation: is normal, Motor: moves all fours, strength is normal, Sensation: is normal. 14:05 Musculoskeletal/extremity: quadriceps tendon intact as patient able to raise left lower cp extremity against resistence and patella tendon intact as patient able to extend left lower leg against resistence. Vital Signs: 12:57 BP 120 / 70; Pulse 74; Resp 16; Temp 97.4; Pulse Ox 100% on R/A; Weight 103.42 kg; iw Height 5 ft. 3 in. (160.02 cm); Pain 6/10; 15:30 BP 117 / 76; Pulse 72; Resp 18; Temp 98.0; Pulse Ox 99% on R/A; ph 12:57 Body Mass Index 40.39 (103.42 kg, 160.02 cm) iw Procedures: 16:15 Splinting: Splint applied to left knee using knee immobilizer, applied by nurse. cp Examined by me, post splint application: neurovascular intact, Patient tolerated well. 16:15 Splinting: Splint applied to right ankle using Air Cast, applied by nurse. Examined by cp me, post splint application: neurovascular intact, Patient tolerated well. Crutch training provided to patient and/or family. Return demonstration given. MDM: 13:06 Patient medically screened. cp 14:00 Differential diagnosis: dislocation, closed fracture, contusion. cp 15:04 Data reviewed: vital signs, nurses notes, radiologic studies, plain films, I have cp discussed the patient's presentation/case with the attending Emergency Department Physician; and as a result, I will discharge patient. 15:04 Counseling: I had a detailed discussion with the patient and/or guardian regarding: the cp historical points, exam findings, and any diagnostic results supporting the discharge/admit diagnosis, radiology results, the need for outpatient follow up, for definitive care, a orthopedic surgeon, to return to the emergency department if symptoms worsen or persist or if there are any questions or concerns that arise at home. Response to treatment: the patient's symptoms have markedly improved after treatment. 11/17 13:42 Order name: XRAY Ankle RIGHT 3 view; Complete Time: 14:54 cp 11/17 13:42 Order name: XRAY Knee LEFT 3 view; Complete Time: 14:54 cp 11/17 14:59 Interpretation: Report reviewed. cp 11/17 14:59 Order name: Knee Immobilizer; Complete Time: 16:11 cp 11/17 14:59 Order name: Crutches; Complete Time: 16:11 cp 11/17 14:59 Order name: Shane wrap-joint; Complete Time: 16:11 cp 11/17 14:59 Order name: Ankle Splint: Aircast; Complete Time: 16:11 cp Administered Medications: 14:45 Drug: HYDROcodone-acetaminophen 10 mg-325 mg 1 tabs Route: PO; ae4 16:54 Follow up: Response: No adverse reaction; Pain is decreased ph Disposition: 18:46 Co-signature as Attending Physician, Neftali Alvarez MD I agree with the assessment and kdr plan of care. Disposition: 11/18/19 15:05 Discharged to Home. Impression: Fracture of tibial tuberosity - left, Sprain of ankle - right. - Condition is Stable. - Discharge Instructions: Ankle Sprain, Tibial Fracture, Adult. - Prescriptions for Tylenol- Codeine #3 300-30 mg Oral Tablet - take 2 tablet by ORAL route every 6 hours As needed; 30 tablet. - Work release form, Medication Reconciliation Form, Thank You Letter, Antibiotic Education, Prescription Opioid Use form. - Follow up: Low Roca MD; When: 1 - 2 days; Reason: left knee fracture. - Problem is new. - Symptoms have improved. Signatures: Dispatcher [employer] EDNM Neftali Alvarez MD MD [facility] Gail Doe RN RN Risa Gonzalez RN RN ss Zane Bae PA PA cp Robin Hernandez RN RN ae4 Rhianna Gomes RN ph Corrections: (The following items were deleted from the chart) 16:21 15:05 11/18/2019 15:05 Discharged to Home. Impression: Fracture of tibial tuberosity - ss left; Sprain of ankle - right. Condition is Stable. Forms are Medication Reconciliation Form, Thank You Letter, Antibiotic Education, Prescription Opioid Use. Follow up: Low Roca; When: 1 - 2 days; Reason: left knee fracture. Problem is new. Symptoms have improved. cp
[2019-11-18 16:51] VITALS: BP 120/70; TEMP 97.4; O2SAT 100
== END 2019-11-18 16:21 | disposition home or self-care (01) ==
LOC: ER 12:51
DX: S82.152A Displaced fracture of left tibial tuberosity, initial encounter for closed fracture (principal); S93.401A Sprain of unspecified ligament of right ankle, initial encounter; W19.XXXA Unspecified fall, initial encounter; Y93.89 Activity, other specified; Y92.9 Unspecified place or not applicable
CPT/HCPCS: 99284

== ENCOUNTER 2022-03-18 13:25 | Emergency (ER) | payer SELFPAY ==
--- NOTE | 2022-03-18 14:41 | RAD REPORT ---
EXAM DESCRIPTION: Shoulder Right 2 View - 03/18/2022 2:13 pm CLINICAL HISTORY: PAIN COMPARISON: No comparisons TECHNIQUE: Internal and external rotation views of the right shoulder were obtained. FINDINGS: There is no fracture or dislocation. AC joint is normal in appearance. No acute or suspic ious findings. IMPRESSION: Negative two-view right shoulder examination.
--- NOTE | 2022-03-18 15:54 | ER ---
Nurse's Notes [facility] Name: Liat Childers Age: 41 yrs Sex: Female : 1980 Arrival Date: 03/18/2022 Time: 13:26 Bed Waiting Private MD: Diagnosis: Pain in right shoulder;Strain of other muscles, fascia and tendons at shoulder and upper arm level, right arm Presentation: 03/18 13:58 Chief complaint: Right shoulder pain after catching falling television 1 week ago. hb Coronavirus screen: At this time, the client does not indicate any symptoms associated with coronavirus-19. Ebola Screen: No symptoms or risks identified at this time. Initial Sepsis Screen:. Onset of symptoms was March 11, 2022. 13:58 Method Of Arrival: Ambulatory hb 13:58 Acuity: ARYAN 4 hb Historical: - Allergies: 14:01 NKDA; hb - Immunization history:: Adult Immunizations up to date. Vital Signs: 13:58 BP 152 / 101; Pulse 65; Resp 16; Temp 98.2(TE); Pulse Ox 100% on R/A; Weight 112.94 kg; hb Height 5 ft. 4 in. (162.56 cm); Pain 6/10; 13:58 Body Mass Index 42.74 (112.94 kg, 162.56 cm) hb ED Course: 13:26 Patient arrived in ED. mr 14:01 Triage completed. hb 14:01 Arm band placed on. hb 14:05 Michael Fernando NP is PHCP. pm1 14:05 Zane Tony MD is Attending Physician. pm1 14:14 Shoulder Right (2 View) XRAY In Process Unspecified. EDMS Administered Medications: 16:05 Drug: HYDROcodone-acetaminophen 5 mg-325 mg 1 tabs Route: PO; hb Outcome: 15:53 Discharge ordered by . pm1 16:05 Patient left the ED. hb Signatures: Dispatcher [employer] EDMS Noelle Velasquez Patrick, NP UTILITIES GROUND WORKER pm1 Bozena Seals, [place] RN hb
--- NOTE | 2022-03-18 15:55 | EDPHYS ---
Physician Documentation [facility] Name: Liat Childers Age: 41 yrs Sex: Female : 1980 Arrival Date: 03/18/2022 Time: 13:26 Bed Waiting Private MD: ARMOND Physician Zane Tony HPI: 03/18 15:52 This 41 yrs old Female presents to ER via Ambulatory with complaints of pm1 Shoulder Pain. 15:52 The patient or guardian complains of pain, that is acute. right shoulder. Context: The pm1 problem was sustained at home, resulted from Attempting to catch falling TV, The patient reports no obvious deformity. Full range of motion intact but painful. 15:52 Onset: The symptoms/episode began/occurred 1 week(s) ago. Modifying factors: the pm1 symptoms are alleviated by remaining still, The symptoms are aggravated by movement. Associated signs and symptoms: Pertinent negatives: Numbness in right arm tingling. Severity of symptoms: in the emergency department the symptoms are unchanged. Treatment prior to arrival includes: over the counter medications, NSAIDS. The patient has not experienced similar symptoms in the past. The patient has not recently seen a physician. Historical: - Allergies: 14:01 NKDA; hb - Immunization history:: Adult Immunizations up to date. ROS: 15:52 Constitutional: Negative for fever, chills, and weight loss, Cardiovascular: Negative pm1 for chest pain, palpitations, and edema, Respiratory: Negative for shortness of breath, cough, wheezing, and pleuritic chest pain. 15:52 Skin: Negative for injury, rash, and discoloration, Neuro: Negative for headache, weakness, numbness, tingling, and seizure. 15:52 MS/extremity: Positive for pain, of the right shoulder, Negative for decreased range of motion, deformity. 15:52 All other systems are negative. Exam: 15:52 Constitutional: This is a well developed, well nourished patient who is awake, alert, pm1 and in no acute distress. Head/Face: Normocephalic, atraumatic. 15:52 Skin: Warm, dry with normal turgor. Normal color with no rashes, no lesions, and no evidence of cellulitis. 15:52 Cardiovascular: Exam negative for acute changes, Rate: normal, Rhythm: regular, Pulses: no pulse deficits are appreciated. 15:52 Respiratory: Exam negative for acute changes, respiratory distress, shortness of breath. 15:52 Musculoskeletal/extremity: Extremities: grossly normal except: noted in the right shoulder: tenderness, There is no evidence of decreased ROM, deformity, Pulses: noted to be 2+ in the right radial artery, the right arm Sensation intact. 15:52 Neuro: Exam negative for acute changes, Orientation: is normal, Mentation: is normal, Motor: is normal, moves all fours. Vital Signs: 13:58 BP 152 / 101; Pulse 65; Resp 16; Temp 98.2(TE); Pulse Ox 100% on R/A; Weight 112.94 kg; hb Height 5 ft. 4 in. (162.56 cm); Pain 6/10; 13:58 Body Mass Index 42.74 (112.94 kg, 162.56 cm) hb MDM: 15:52 Data reviewed: vital signs. Data interpreted: Pulse oximetry: on room air is 100 %. pm1 Interpretation: normal. Counseling: I had a detailed discussion with the patient and/or guardian regarding: the historical points, exam findings, and any diagnostic results supporting the discharge/admit diagnosis, radiology results, the need for outpatient follow up, a orthopedic surgeon, to return to the emergency department if symptoms worsen or persist or if there are any questions or concerns that arise at home. 15:53 Patient medically screened. pm1 03/18 14:02 Order name: Shoulder Right (2 View) XRAY; Complete Time: 15:20 hb 03/18 15:54 Order name: Sling; Complete Time: 16:05 pm1 Administered Medications: 16:05 Drug: HYDROcodone-acetaminophen 5 mg-325 mg 1 tabs Route: PO; hb Disposition Summary: 03/18/22 15:53 Discharge Ordered Location: Home pm1 Problem: new pm1 Symptoms: have improved pm1 Condition: Stable pm1 Diagnosis - Pain in right shoulder pm1 - Strain of other muscles, fascia and tendons at shoulder and upper arm level, right pm1 arm Followup: pm1 - With: Emergency Department - When: As needed - Reason: Worsening of condition Followup: pm1 - With: Private Physician - When: 2 - 3 days - Reason: Recheck today's complaints, Continuance of care, Re-evaluation by your physician Discharge Instructions: - Discharge Summary Sheet pm1 - Shoulder Pain pm1 - How to Use a Sling pm1 Forms: - Medication Reconciliation Form pm1 - Thank You Letter pm1 - Antibiotic Education pm1 - Prescription Opioid Use pm1 Prescriptions: - Cyclobenzaprine 10 mg Oral Tablet - take 1 tablet by ORAL route every 8 hours As needed; 30 tablet; Refills: 0, pm1 Product Selection Permitted - Tylenol-Codeine #3 300 mg-30 mg Oral - take 2 tablet by ORAL route every 6 hours As needed; 20 tablet; Refills: 0, pm1 Product Selection Permitted Signatures: Dispatcher [employer] [facility] Michael Fernando, GE RISK ANALYST pm1 Bozena Seals, RN RN
[2022-03-18] MEDS ORDERED: HYDROCODONE/APAP 5/325 MG TAB ONE (16:08)
[2022-03-18 16:37] VITALS: BP 152/101; TEMP 98.2; O2SAT 100
== END 2022-03-18 16:05 | disposition home or self-care (01) ==
LOC: ER 13:25
DX: S46.811A Strain of other muscles, fascia and tendons at shoulder and upper arm level, right arm, initial encounter (principal)
CPT/HCPCS: 99283

== ENCOUNTER 2023-12-17 11:42 | Emergency (ER) | payer OTHER ==
--- OUTSIDE RECORDS SUMMARY | 2023-12-17 11:45 | XMS REPORT | Continuity of Care Document ---
Author Name Unknown Address [address] [facility] [address]. [address] [place] [address] [facility] thconnect Address [address] [facility]. 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 94 ON 9 [id number] 2023 00:00:00 Social History Social Habit Start Date Stop Date Quantity Comments Source Sexual orientation Laine Rosenbaum - External Tobacco use and exposure 2023-11-18 00:00:00 2023-11-18 00:00:00 Smokeless tobacco non-user Ariana Rosenbaum - External History of Social function 2023-11-18 00:00:00 2023-11-18 00:00:00 Ariana Rosenbaum - External Sex Ass[birth year] At 1980 00:00:00 1980 00:00:00 Ariana Rosenbaum - External Smoking Status Start Date Stop Date Source Never smoked tobacco Ariana Rosenbaum - External Medications Ordered Medication Name Filled Medication Name Start Date Stop Date Current Medication? Ordering Clinician Indication Dosage Frequency Signature (SIG) Comments Components Source CLINDAMYCIN PHOSPHATE,T OPICAL, 1 % apply externally Lotion 11-17 00:00: 00 Yes [id number] Apply to affected areas twice daily. Ariana Rosenbaum - Externa l Triamcinolo ne Acetonide 0.1 % apply externally Cream 11-17 00:00: 00 Yes [id number] Apply to affected areas twice daily on neck for up to two weeks. Then use as needed to affected areas.. Ariana castano Doxycycline Monohydrate 100 MG oral Tablet 11-17 00:00: 00 12-02 04:59 :00 Yes [id number] 100mg Take 1 tablet (100 mg total) by mouth 2 times daily for 14 days Take with food.. Ariana castano Encounters Start Date/Time End Date/Time Encounter Type Admission Type Attending [facility] Facility Care Department Encounter ID Source 2024-02-18 10:00:00 2024-02-18 10:00:00 Outpatient BOBBY YANG [id number] Ariana sarita 2023-11-18 11:45:00 2023-11-18 11:45:00 Outpatient BOBBY YANG [id number] Ariana [facility] 2023-09-01 09:40:27 2023-09-01 09:40:27 Outpatient [facility] [id number] Jacky Rhoades Notes Date/Time Note Provider Source 2023-11-18 12:03:05 [id number] Swnn/[id number] T12:03:05 Chief ComplaintPatient presents withBarry Acosta [id number] [id number]:08:31Nurse [id number] for patient [id number] NoteLNNARRATIVEFormatted C-CDA narrative textRashmiAvita Health System [facility].[id number] [facility]"
[2023-12-17] MEDS ORDERED: KETOROLAC 30 MG/ML INJ ONE (13:00)
--- NOTE | 2023-12-17 13:38 | RAD REPORT ---
EXAM DESCRIPTION: RAD - Lumbar Spine 3 Views - 12/17/2023 1:04 pm CLINICAL HISTORY: PAIN COMPARISON: No comparisons TECHNIQUE: Lumbar spine, 3 views. FINDINGS: Lumbar vertebral bodies are normal in height and alignment. No fracture or acute bony proc ess seen. Multilevel mild degenerative changes with endplate remodeling. Facet arthropathy most prono unced at the lower lumbar levels. No other significant findings. IMPRESSION: Mild multilevel degenerative changes as above. No acute osseous abnormality.
--- NOTE | 2023-12-17 13:40 | ER ---
Nurse's Notes [facility] Name: Liat Childers Age: 43 yrs Sex: Female : 1980 Arrival Date: 12/17/2023 Time: 11:42 Bed 11 Private MD: Diagnosis: Low back pain Presentation: 12/16 11:52 Chief complaint: Patient states: i guess I pulled something in my back , my mom fell iw and I had to help her up , happened yesterday and today she aggravated it more going down some stairs , pain from mid back down left buttock. Coronavirus screen: At this time, the client does not indicate any symptoms associated with coronavirus-19. Ebola Screen: Patient negative for fever greater than or equal to 101.5 degrees Fahrenheit, and additional compatible Ebola Virus Disease symptoms Patient denies exposure to infectious person. Patient denies travel to an Ebola-affected area in the 21 days before illness onset. No symptoms or risks identified at this time. Initial Sepsis Screen: Does the patient meet any 2 criteria? No. Patient's initial sepsis screen is negative. Does the patient have a suspected source of infection? No. Patient's initial sepsis screen is negative. Risk Assessment: Do you want to hurt yourself or someone else? Patient reports no desire to harm self or others. Onset of symptoms was December 16, 2023. 11:52 Method Of Arrival: Ambulatory 11:52 Acuity: ARYAN 4 iw Historical: - Allergies: 11:54 NKDA; iw - Home Meds: 11:54 None [Active]; iw - PMHx: 11:54 None; iw - PSHx: 11:54 section; Cholecystectomy; iw - Immunization history:: Adult Immunizations. - Infectious Disease History:: Denies. - Social history:: Smoking status: Patient denies any tobacco usage or history of. Screenin:27 [facility] ED Fall Risk Assessment (Adult) History of falling in the last 3 months, nj1 including since admission No falls in past 3 months (0 pts) Confusion or Disorientation No (0 pts) Intoxicated or Sedated No (0 pts) Impaired Gait No (0 pts) Mobility Assist Device Used No (0 pt) Altered Elimination No (0 pt) Score/Fall Risk Level 0 - 2 = Low Risk Oriented to surroundings, Maintained a safe environment, Hourly rounding (assess needs \T\ fall precautionary measures) done. Abuse screen: Denies threats or abuse. Denies injuries from another. Nutritional screening: No deficits noted. Tuberculosis screening: No symptoms or risk factors identified. Assessment: 12:10 General: Appears uncomfortable, Behavior is calm, cooperative, appropriate for age. ll1 Pain: Complains of pain in back Pain radiates to buttocks. Musculoskeletal: Circulation, motion, and sensation intact. Capillary refill < 3 seconds, Reports pain in back. 12:51 Reassessment: Not in room at this time. nj1 13:20 General: Appears in no apparent distress. uncomfortable, Behavior is calm, cooperative, nj1 appropriate for age. 13:20 Pain: Complains of pain in back Pain radiates to left leg Pain currently is 6 out of 10 nj1 on a pain scale. Neuro: Level of Consciousness is awake, alert, obeys commands, Oriented to person, place, time, situation. Cardiovascular: Patient's skin is warm and dry. Respiratory: Airway is patent Respiratory effort is even, unlabored. Vital Signs: 11:55 BP 112 / 90; Pulse 80; Resp 18; Temp 97.4; Pulse Ox 100% on R/A; Weight 108.86 kg; iw Height 5 ft. 4 in. ; Pain 6/10; 13:54 Pain 5/10; iw 11:55 Body Mass Index 41.19 (108.86 kg, 162.56 cm) iw 11:55 Pain Scale: Adult iw 13:54 Pain Scale: Adult iw ED Course: 11:46 Patient arrived in ED. rg4 11:52 Aleta Sims MD is Attending Physician. sp3 11:53 Triage completed. iw 11:54 Arm band placed on. iw 12:10 Patient placed in an exam room, on a stretcher. ll1 12:22 Sharri Wall, [place] is Primary Nurse. nj1 13:06 Lumbar Spine (3 Views) XRAY In Process Unspecified. EDMS 13:20 Patient has correct armband on for positive identification. Bed in low position. Call nj1 light in reach. Provided Education on: call light, fall precautions. 13:54 No provider procedures requiring assistance completed. Patient did not have IV access iw during this emergency room visit. Administered Medications: 13:20 Drug: Ketorolac IM 30 mg IM once Route: IM; Site: right gluteus; nj1 13:54 Follow up: Pain 5/10 Adult; Response: No adverse reaction; Pain is decreased iw Medication: 13:55 VIS not applicable for this client. iw Outcome: 13:39 Discharge ordered by . stacy 13:54 Discharged to home ambulatory, iw 13:54 Condition: stable 13:54 Discharge instructions given to patient, Instructed on discharge instructions, follow up and referral plans. medication usage, Demonstrated understanding of instructions, follow-up care, medications, Prescriptions given X 2, 13:55 Patient left the ED. iw Signatures: Dispatcher [employer] EDMS Gail Doe RN RN iw Reema Carrera rg4 Abisai Ramirez RN RN ll1 Aleta Sims MD MD sp3 Sharri Wall RN RN nj1 Corrections: (The following items were deleted from the chart) 11:56 11:55 Pulse 80bpm; Resp 18bpm; Pulse Ox 100% RA; Temp 97.4F; 108.86 kg; Height 5 ft. 4 iw in.; BMI: 41.2; Pain 6/10, Adult; iw
--- NOTE | 2023-12-17 13:40 | EDPHYS ---
Physician Documentation [facility] Name: Liat Childers Age: 43 yrs Sex: Female : 1980 Arrival Date: 12/17/2023 Time: 11:42 Bed 11 Private MD: ED Physician Aleta Sims HPI: 12/16 12:56 This 43 yrs old Female presents to ER via Ambulatory with complaints of Back sp3 Pain. 12:56 43-year-old female with history of prior back sprain and left-sided sciatica now sp3 presents with low back pain starting yesterday when she had to lift her mother up off the floor and today while at work she states she had to run down the stairs holding a toddler. Patient is ambulatory and reports no neurological problems. No direct injury or trauma. Review of systems negative for any other symptoms.. Historical: - Allergies: 11:54 NKDA; iw - Home Meds: 11:54 None [Active]; iw - PMHx: 11:54 None; iw - PSHx: 11:54 section; Cholecystectomy; iw - Immunization history:: Adult Immunizations. - Infectious Disease History:: Denies. - Social history:: Smoking status: Patient denies any tobacco usage or history of. ROS: 13:00 Constitutional: Negative for fever, chills, and weight loss, Eyes: Negative for injury, sp3 pain, redness, and discharge, Neck: Negative for injury, pain, and swelling, Cardiovascular: Negative for chest pain, palpitations, and edema, Respiratory: Negative for shortness of breath, cough, wheezing, and pleuritic chest pain, Abdomen/GI: Negative for abdominal pain, nausea, vomiting, diarrhea, and constipation, MS/Extremity: Negative for injury and deformity, Skin: Negative for injury, rash, and discoloration, Neuro: Negative for headache, weakness, numbness, tingling, and seizure, Psych: Negative for depression, anxiety, suicide ideation, homicidal ideation, and hallucinations, Allergy/Immunology: Negative for hives, rash, and allergies, Endocrine: Negative for neck swelling, polydipsia, polyuria, polyphagia, and marked weight changes, 13:00 All other systems are negative, Exam: 13:00 Constitutional: This is a well developed, well nourished patient who is awake, alert, sp3 and in no acute distress. Head/Face: Normocephalic, atraumatic. Eyes: Pupils equal round and reactive to light, extra-ocular motions intact. Lids and lashes normal. Conjunctiva and sclera are non-icteric and not injected. Cornea within normal limits. Periorbital areas with no swelling, redness, or edema. Neck: Trachea midline, no thyromegaly or masses palpated, and no cervical lymphadenopathy. Supple, full range of motion without nuchal rigidity, or vertebral point tenderness. No Meningismus. Chest/axilla: Normal chest wall appearance and motion. Nontender with no deformity. No lesions are appreciated. Cardiovascular: Regular rate and rhythm with a normal S1 and S2. No gallops, murmurs, or rubs. Normal PMI, no JVD. No pulse deficits. Respiratory: Lungs have equal breath sounds bilaterally, clear to auscultation and percussion. No rales, rhonchi or wheezes noted. No increased work of breathing, no retractions or nasal flaring. Abdomen/GI: Soft, non-tender, with normal bowel sounds. No distension or tympany. No guarding or rebound. No evidence of tenderness throughout. Skin: Warm, dry with normal turgor. Normal color with no rashes, no lesions, and no evidence of cellulitis. MS/ Extremity: Pulses equal, no cyanosis. Neurovascular intact. Full, normal range of motion. Neuro: Awake and alert, GCS 15, oriented to person, place, time, and situation. Cranial nerves II-XII grossly intact. Motor strength 5/5 in all extremities. Sensory grossly intact. Cerebellar exam normal. Normal gait. Psych: Awake, alert, with orientation to person, place and time. Behavior, mood, and affect are within normal limits. 13:00 Back: Patient has pain on palpation of the musculature of the lower back. No pain on direct bone/no bony tenderness. Neurological exam is normal., Vital Signs: 11:55 BP 112 / 90; Pulse 80; Resp 18; Temp 97.4; Pulse Ox 100% on R/A; Weight 108.86 kg; iw Height 5 ft. 4 in. ; Pain 6/10; 13:54 Pain 5/10; iw 11:55 Body Mass Index 41.19 (108.86 kg, 162.56 cm) iw 11:55 Pain Scale: Adult iw 13:54 Pain Scale: Adult iw MDM: 12:06 Patient medically screened. sp3 13:01 Data reviewed: vital signs, nurses notes, radiologic studies. ED course: 43-year-old sp3 female with low back pain likely musculoskeletal strain in nature. 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 If x-rays of the lumbosacral spine are negative, we will safely discharge her home on Flexeril and NSAID. Ketorolac 30 mg IM x 1 in the ED.. 13:39 ED course: Multilevel degenerative changes without acute abnormality or fracture.. sp3 12/16 12:42 Order name: Lumbar Spine (3 Views) XRAY; Complete Time: 13:39 sp3 Administered Medications: 13:20 Drug: Ketorolac IM 30 mg IM once Route: IM; Site: right gluteus; nj1 13:54 Follow up: Pain 5/10 Adult; Response: No adverse reaction; Pain is decreased iw Disposition Summary: 12/17/23 13:39 Discharge Ordered Notes: Location: Home sp3 Condition: Stable sp3 Diagnosis - Low back pain sp3 Followup: sp3 - With: Private Physician - When: Upon discharge from the Emergency Department - Reason: Continuance of care Discharge Instructions: - Discharge Summary Sheet sp3 - Acute Back Pain, Adult sp3 Forms: - Work release form iw - Medication Reconciliation Form sp3 - Antibiotic Education sp3 - Prescription Opioid Use sp3 - Patient Portal Instructions sp3 - Leadership Thank You Letter sp3 Prescriptions: - Diclofenac Sodium 75 mg Oral Tablet Sustained Release - take 1 tablet ORAL route 2 times per day; 30 tablet; Refills: 0, Product sp3 Selection Permitted - Cyclobenzaprine 5 mg Oral Tablet - take 1 tablet ORAL route 3 times per day As needed; 15 tablet; Refills: 0, sp3 Product Selection Permitted Signatures: Dispatcher [employer] Gail Lima, RN RN iw Aleta Sims MD MD sp3 Sharri Wall RN RN nj1
[2023-12-17 14:28] VITALS: BP 112/90; TEMP 97.4; O2SAT 100
== END 2023-12-17 13:55 | disposition home or self-care (01) ==
LOC: ER 11:42
DX: M54.50 Low back pain, unspecified (principal)
CPT/HCPCS: 72100

== ENCOUNTER 2024-08-24 08:08 | Emergency (ER) | payer OTHER ==
--- OUTSIDE RECORDS SUMMARY | 2024-08-24 08:11 | XMS REPORT | Continuity of Care Document ---
Author Name Unknown Address [address] [place] [address] [address] [facility] 1 [address] [place] [address] Care Team Providers Care Market Research Lead Name Role Phone Unavailable Unavailable Unavailable Encounters Start Date/Time End Date/Time Encounter Type Admission Type Attending Clinicians Care Facility Care Department Encounter ID Source 2023-09-01 09:40:27 2023-09-01 09:40:27 Outpatient [facility] [id number] Jacky Rhoades
--- NOTE | 2024-08-24 08:35 | EDPHYS ---
Physician Documentation [facility] Name: Liat Childers Age: 44 yrs Sex: Female : 1980 Arrival Date: 08/24/2024 Time: 08:08 Bed 5 Private MD: ED Physician Nicolas Silva HPI: 08/24 08:31 This 44 yrs old Female presents to ER via Unassigned with complaints of right, ec2 Ankle Swelling, Skin Sore(s). 08:31 Patient arrives today for evaluation of multiple skin swellings. Patient reports for ec2 the past week she has been having some nodules on her bilateral lower extremities. Reports no fevers or chills, reports some redness as well as some lumps to the areas. Denies any injuries or trauma. Denies any abdominal pain, nausea or vomiting or diarrhea. Reports otherwise no systemic symptoms.. 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 - Infectious Disease History:: Denies. - Social history:: Smoking status: Patient denies any tobacco usage or history of. ROS: 08:31 Constitutional: as per hpi ec2 Exam: 08:31 Constitutional: GEN: NAD Head: atraumatic Eyes: EOMI Ears: External ears are ec2 normal. CV: regular rate LUNGS: no respiratory distress ABD: non-distended SKIN: Multiple inflammatory nodules done in the bilateral lower extremity with TTP. MSK: no evidence of trauma Vital Signs: 08:30 BP 161 / 111; Pulse 93; Resp 17; Temp 98.7; Pulse Ox 98% on R/A; Weight 106.59 kg; ll1 Height 5 ft. 4 in. ; Pain 6/10; 08:46 BP 117 / 84; Pulse 67; Resp 17; Pulse Ox 99% ; Pain 6/10; ll1 08:30 Body Mass Index 40.34 (106.59 kg, 162.56 cm) ll1 08:30 Pain Scale: Adult ll1 08:46 Pain Scale: Adult ll1 MDM: 08:25 Medical Screening Exam initiated ec2 08:31 Data reviewed: vital signs, nurses notes. ED course: Patient arrives today for ec2 evaluation of nodules on the skin. Examination is revealing for well-appearing nontoxic individuals otherwise in no acute distress with skin findings consistent with erythema nodosum. There is 1 area that has small erythema, possible cellulitis. Will start pt on prednisone for inflammatory process, will start pt on abx for possible concurrent cellulitis. Administered Medications: 08:46 Drug: predniSONE PO 40 mg PO once Route: PO; ll1 08:56 Follow up: Response: No adverse reaction ll1 08:46 Drug: Trimethoprim-Sulfamethoxazole PO (160 mg-800 mg (DS) 1 tablet PO once Route: PO; ll1 08:56 Follow up: Response: No adverse reaction ll1 08:46 Drug: Ketorolac IM 30 mg IM once {Note: pain 6/10 RASS 0.} Route: IM; Site: left ll1 gluteus; 08:55 Follow up: Response: No adverse reaction ll1 Disposition Summary: 08/24/24 08:34 Discharge Ordered Notes: Location: Home ec2 Condition: Stable ec2 Diagnosis - Erythema nodosum ec2 Followup: ec2 - With: Private Physician - When: - Reason: Re-evaluation by your physician Discharge Instructions: - Discharge Summary Sheet ec2 - Erythema Nodosum ec2 Forms: - Medication Reconciliation Form ec2 - Antibiotic Education ec2 - Prescription Opioid Use ec2 - Patient Portal Instructions ec2 - Leadership Thank You Letter ec2 Prescriptions: - Bactrim DS 800-160 mg Oral Tablet - take 1 tablet ORAL route every 12 hours for 7 days; 14 tablet; Refills: 0, ec2 Product Selection Permitted - Prednisone 20 mg Oral Tablet - take 2 tablets ORAL route once daily for 5 days; 10 tablet; Refills: 0, Product ec2 Selection Permitted Signatures: Abisai Ramirez RN RN ll1 Nicolas Silva MD MD ec2
--- NOTE | 2024-08-24 08:35 | ER ---
Nurse's Notes [facility] Name: Liat Childers Age: 44 yrs Sex: Female : 1980 Arrival Date: 08/24/2024 Time: 08:08 Bed 5 Private MD: Diagnosis: Erythema nodosum Presentation: 08/24 08:30 Chief complaint: Patient states: R ankle pain, swelling since 08/17. Now has painful ll1 swollen lumps up both legs. No fever, but sites are hot to touch. Coronavirus screen: Client denies travel out of the [place] in the last 14 days. At this time, the client does not indicate any symptoms associated with coronavirus-19. Ebola Screen: Patient denies travel to an Ebola-affected area in the 21 days before illness onset. Initial Sepsis Screen: Does the patient meet any 2 criteria? No. Patient's initial sepsis screen is negative. Does the patient have a suspected source of infection? No. Patient's initial sepsis screen is negative. Risk Assessment: Do you want to hurt yourself or someone else? Patient reports no desire to harm self or others. Onset of symptoms was August 17, 2024. 08:30 Method Of Arrival: Ambulatory ll1 08:30 Acuity: ARYAN 4 ll1 Triage Assessment: 08:56 General: Appears in no apparent distress. Behavior is calm, cooperative, appropriate ll1 for age. Pain: Complains of pain in right leg and left leg Quality of pain is described as aching. 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 - Infectious Disease History:: Denies. - Social history:: Smoking status: Patient denies any tobacco usage or history of. Screenin:56 [facility] ED Fall Risk Assessment (Adult) History of falling in the last 3 months, ll1 including since admission No falls in past 3 months (0 pts) Confusion or Disorientation No (0 pts) Intoxicated or Sedated No (0 pts) Impaired Gait No (0 pts) Mobility Assist Device Used No (0 pt) Altered Elimination No (0 pt) Score/Fall Risk Level 0 - 2 = Low Risk Maintained a safe environment, Hourly rounding (assess needs \T\ fall precautionary measures) done. Abuse screen: Denies threats or abuse. Nutritional screening: No deficits noted. Tuberculosis screening: No symptoms or risk factors identified. Vital Signs: 08:30 BP 161 / 111; Pulse 93; Resp 17; Temp 98.7; Pulse Ox 98% on R/A; Weight 106.59 kg; ll1 Height 5 ft. 4 in. ; Pain 6/10; 08:46 BP 117 / 84; Pulse 67; Resp 17; Pulse Ox 99% ; Pain 6/10; ll1 08:30 Body Mass Index 40.34 (106.59 kg, 162.56 cm) ll1 08:30 Pain Scale: Adult ll1 08:46 Pain Scale: Adult ll1 ED Course: 08:10 Patient arrived in ED. mr 08:14 Nicolas Silva MD is Attending Physician. ec2 08:17 Arm band placed on Patient placed in an exam room, on a stretcher. ll1 08:31 Triage completed. ll1 08:34 Abisai Ramirez, [place] is Primary Nurse. ll1 08:57 Patient has correct armband on for positive identification. Provided Education on: ER ll1 procedures and process. 08:57 No provider procedures requiring assistance completed. Patient did not have IV access ll1 during this emergency room visit. Administered Medications: 08:46 Drug: predniSONE PO 40 mg PO once Route: PO; ll1 08:56 Follow up: Response: No adverse reaction ll1 08:46 Drug: Trimethoprim-Sulfamethoxazole PO (160 mg-800 mg (DS) 1 tablet PO once Route: PO; ll1 08:56 Follow up: Response: No adverse reaction ll1 08:46 Drug: Ketorolac IM 30 mg IM once {Note: pain 6/10 RASS 0.} Route: IM; Site: left ll1 gluteus; 08:55 Follow up: Response: No adverse reaction ll1 Medication: 08:57 VIS not applicable for this client. ll1 Outcome: 08:34 Discharge ordered by . ec2 08:57 Discharged to home ambulatory, ll1 08:57 Condition: stable 08:57 Discharge instructions given to patient, Instructed on discharge instructions, follow up and referral plans. medication usage, Demonstrated understanding of instructions, follow-up care, medications, Prescriptions given X 2, 08:58 Patient left the ED. ll1 Signatures: Noelle Velasquez, Kristopher Reg mr Abisai Ramirez RN RN ll1 Nicolas Silva MD MD ec2 Corrections: (The following items were deleted from the chart) 08:56 08:46 BP 117 / 84; Pulse 67bpm; Pulse Ox 99%; ll1 ll1
[2024-08-24] MEDS ORDERED: KETOROLAC 30 MG/ML INJ ONE (08:40)
[2024-08-24] MEDS ORDERED: predniSONE 20 MG TAB ONE (08:40)
[2024-08-24] MEDS ORDERED: SMZ./TMP. 800/160 MG TABLET ONE (08:40)
[2024-08-24 09:43] VITALS: BP 161/111; TEMP 98.7; O2SAT 98
== END 2024-08-24 08:58 | disposition home or self-care (01) ==
LOC: ER 08:08
DX: L52 Erythema nodosum (principal)
CPT/HCPCS: 96372; 99284; J7512